=== PATIENT | female | born 1970 | race Caucasian/White ===

== ENCOUNTER 2023-05-26 16:48 | Inpatient (IN) | payer MEDICAID, SELFPAY ==
[2023-05-26] VITALS (36 sets, daily range): BP systolic 139–162; BP diastolic 91–115; PULSE 93–151; RESP 13–31; TEMP 36.8–37.1; O2SAT 88–100; BMI 18.3; BMI 17.8
--- NOTE | 2023-05-26 17:04 | ECG_ITS ---
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
--- NOTE | 2023-05-26 17:05 | ED_ITS ---
HPI - SOB/Dyspnea General Chief Complaint: Shortness of Breath/Dyspnea Stated Complaint: earache, sob Time Seen by Provider: 05/26/23 16:54 Source: patient Mode of arrival: walk-in Limitations: no limitations History of Present Illness HPI Narrative: 52-year-old female presents for shortness of breath and cough. She has been sick for at least the last week. She was at an urgent care center and they put her on some medicine including a steroid. Her left ear has been hurting and it still hurts. No drainage. She was noted to be tachycardic at triage but did not realize that her heart rate was so fast. She states she has never used inhalers at home. Symptoms are continuous. Related Data Home Medications Medication Instructions Recorded Confirmed prednisone 20 mg tablet 20 mg PO BID 05/26/23 05/26/23 pseudoephedrine 60 mg-DM 15 1 tab PO Q4H 05/26/23 05/26/23 mg-guaifenesin 400 mg tablet (Capmist DM) Allergies Allergy/AdvReac Type Severity Reaction Status Date / Time No Known Drug Allergies Allergy Verified 05/26/23 17:01 Review of Systems ROS Narrative A ten point review of systems is negative except as noted above. PFSH PFSH Social History Smoking status: Heavy tobacco smoker Exam Narrative Exam Narrative: Nurses note and vital signs reviewed and patient is not hypoxic. General: The patient appears dyspneic. Skin: Warm, dry, no pallor noted. There is no rash noted. Head: Normocephalic, atraumatic Eye: Normal conjunctiva, no drainage Ears, Nose, Mouth, and Throat: oral mucosa is moist. Nares patent. Cardiovascular: Regular Rate and Rhythm, tachycardic Respiratory: Bilateral rhonchi present, breath sounds are Back: non-tender GI: Soft and nontender Musculoskeletal: The patient has no evidence of calf tenderness, no pitting edema, symmetrical pulses noted bilaterally Neurological: A&O, normal speech Psychiatric: Cooperative Constitutional Vital Signs, click to edit/add: Last Vital Signs Temp 98.8 F 05/26/23 16:56 Pulse 109 H 05/26/23 17:50 Resp 24 05/26/23 17:50 BP 158/104 H 05/26/23 17:49 Pulse Ox 98 05/26/23 17:50 O2 Del Method Room Air 05/26/23 17:31 Course Vital Signs Vital signs: Vital Signs Temperature 98.8 F 05/26/23 16:56 Pulse Rate 130 H 05/26/23 16:56 Respiratory Rate 20 05/26/23 16:56 Blood Pressure 162/101 H 05/26/23 16:56 Pulse Oximetry 98 05/26/23 16:56 Temperature 98.8 F 05/26/23 16:56 Pulse Rate 109 H 05/26/23 17:50 Respiratory Rate 24 05/26/23 17:50 Blood Pressure 158/104 H 05/26/23 17:49 Pulse Oximetry 98 05/26/23 17:50 Oxygen Delivery Method Room Air 05/26/23 17:31 MDM - SOB/Dyspnea MDM Narrative Medical decision making narrative: LFTs are quite elevated. CT scan is ordered and pending and the patient is signed out to Dr. Vargas at change of shift. Chest x-ray shows no acute findings and COVID and influenza test are negative Differential Diagnosis Differential diagnosis: Likely acute exacerbation of chronic obstructive airways disease, congestive heart failure, community acquired pneumonia and other (Acute cholecystitis) Lab Data Attestation: I reviewed the patient's lab results. Labs: Lab Results 05/26/23 05/26/23 Range/Units 17:10 18:35 WBC 7.7 (4.0-11.0) 10^3/uL RBC 4.21 (4.20-5.40) 10^6/uL Hgb 14.4 (12.0-16.0) g/dL Hct 39.5 (36.0-48.0) % MCV 93.8 (81.0-99.0) fL MCH 34.2 H (26.7-34.0) pg MCHC 36.5 H (29.9-35.2) g/dL RDW 15.1 H (11.0-15.0) % Plt Count 133 L (150-450) 10^3/uL MPV 10.1 (9.5-13.5) fL Neut % (Auto) 91.9 H (43.0-75.0) % Lymph % (Auto) 3.5 L (20.5-60.0) % [place] % (Auto) 3.2 (1.7-12.0) % Eos % (Auto) 0.4 L (0.9-7.0) % Baso % (Auto) 0.5 (0.2-2.0) % Neut # (Auto) 7.1 H (1.4-6.5) 10^3/uL Lymph # (Auto) 0.3 L (1.2-3.8) 10^3/uL [place] # (Auto) 0.3 (0.3-0.8) 10^3/uL Eos # (Auto) 0.0 (0.0-0.7) 10^3/uL Baso # (Auto) 0.0 (0.0-0.1) 10^3/uL Abs Immat Gran (auto) 0.04 H (0.00-0.03) 10^3/uL Imm/Tot Granulo (auto) 0.5 (0.0-0.5) % Sodium 125 L (136-145) mmol/L Potassium 3.5 (3.5-5.1) mmol/L Chloride 89 L (98-107) mmol/L Carbon Dioxide 19.6 L (21.0-32.0) mmol/L Anion Gap 19.9 BUN 12.0 (7.0-18.0) mg/dL Creatinine 0.69 (0.55-1.02) mg/dL Est GFR ( Amer) >60 (>=60) Est GFR (Non-Af Amer) >60 (>=60) BUN/Creatinine Ratio 17.4 Glucose 117 H (74-106) mg/dL Lactate 2.8 H* (0.4-2.0) mmol/L Calcium 7.3 L (8.5-10.1) mg/dL Total Bilirubin 2.9 H (0.2-1.0) mg/dL AST 1120 H* (15-37) U/L ALT 553 H* (14-59) U/L Alkaline Phosphatase 337 H (46-116) U/L Total Protein 6.8 (6.4-8.2) g/dL Albumin 3.3 L (3.4-5.0) g/dL Globulin 3.5 g/dL Albumin/Globulin Ratio 0.9 Procalcitonin 0.70 H (0.00-0.50) ng/mL Urine Color Yellow (YELLOW) Urine Clarity Clear (CLEAR) Urine pH 6.5 (5.0-9.0) Ur Specific [place] 1.010 (1.005-1.025) Urine Protein Trace (NEG/TRACE) mg/dL Urine Glucose (UA) Negative (NEGATIVE) mg/dL Urine Ketones 15 A (NEGATIVE) mg/dL Urine Occult Blood Negative (NEGATIVE) Urine Nitrite Negative (NEGATIVE) Urine Bilirubin Small A (NEGATIVE) Urine Urobilinogen 2.0 A (0.2-1.0) EU/dL Ur Leukocyte Esterase Negative (NEGATIVE) Influenza Type A Ag Negative Influenza Type B Ag Negative SARS-CoV-2 Ag (CV2AG) Negative (NEGATIVE) Imaging Data Chest x-ray: Radiologist's impression: ITS Impressions Chest X-Ray 05/26/23 17:37 IMPRESSION: No acute cardiopulmonary abnormality. Electronically authenticated by: CHESTER SINGH Date: 05/26/2023 18:28 Discharge Plan Discharge Patient Disposition: Still a Patient
[2023-05-26] MEDS: METHYLPREDNISOLONE SOD SUCC PF 125 MG/2 ML VIAL IVP (17:19)
[2023-05-26 17:24] LABS: Basophils Percent Auto 0.5 % (0.2-2.0); Eosinophils Percent Auto 0.4 % (0.9-7.0); Hematocrit 39.5 % (36.0-48.0); Hemoglobin 14.4 g/dL (12.0-16.0); Immature Granulocytes Abs Auto 0.04 10^3/uL (0.00-0.03); Immature Granulocytes Pct Auto 0.5 % (0.0-0.5); Lymphocytes Absolute Auto 0.3 10^3/uL (1.2-3.8); Lymphocytes Percent Auto 3.5 % (20.5-60.0); Mean Corpuscular HGB Conc 36.5 g/dL (29.9-35.2); Mean Corpuscular Hemoglobin 34.2 pg (26.7-34.0); Mean Corpuscular Volume 93.8 fL (81.0-99.0); Mean Platelet Volume 10.1 fL (9.5-13.5); Monocytes Absolute Auto 0.3 10^3/uL (0.3-0.8); Monocytes Percent Auto 3.2 % (1.7-12.0); Neutrophils Absolute Auto 7.1 10^3/uL (1.4-6.5); Neutrophils Percent Auto 91.9 % (43.0-75.0); Platelet Count 133 10^3/uL (150-450); Red Blood Count 4.21 10^6/uL (4.20-5.40); Red Cell Distribution Width 15.1 % (11.0-15.0); White Blood Count 7.7 10^3/uL (4.0-11.0)
[2023-05-26] MEDS: ALBUTEROL SULFATE 2.5 MG/3 ML VIAL NEB IH (17:36)
--- NOTE | 2023-05-26 17:37 | XR_ITS ---
The [address] [address] Patient Name: ADRIAN ABEBE MRN: [id number] date: 1970 Sex: F Assigned Patient Location: ER Current Patient Location: ER Accession/Order Number: [id number] Exam Date: 05/26/2023 17:45 Report Date: 05/26/2023 18:28 At the request of: IMELDA CARDOZA Procedure: XR chest 1V EXAMINATION: XR chest 1V 05/26/2023 3:27 PM PST HISTORY: SOB TECHNIQUE: Single frontal view of the chest acquired. COMPARISONS: None. FINDINGS: Lines/tubes/other: None. Heart and mediastinum: The heart and the mediastinum are within normal limits for technique. Bones: No acute osseous abnormality. Healed left clavicle fracture and healed left-sided rib fractures. Lungs: The lungs are clear. There is no evidence of pneumonia or pulmonary edema. Pleura: There is no significant pleural effusion or pneumothorax. Other: None. XR/XR chest 1V IMPRESSION: No acute cardiopulmonary abnormality. Electronically authenticated by: CHESTER SINGH Date: 05/26/2023 18:28
[2023-05-26 17:39] LABS: Albumin Globulin Ratio 0.9; Albumin Level 3.3 g/dL (3.4-5.0); Alkaline Phosphatase 337 U/L (46-116); Anion Gap 19.9; BUN Creatinine Ratio 17.4; Bilirubin Total 2.9 mg/dL (0.2-1.0); Calcium 7.3 mg/dL (8.5-10.1); Carbon Dioxide 19.6 mmol/L (21.0-32.0); Chloride 89 mmol/L (98-107); Estimated GFR (African America >60 (>=60); Estimated GFR (Non-African Ame >60 (>=60); Globulin 3.5 g/dL; Glucose 117 mg/dL (74-106); Potassium 3.5 mmol/L (3.5-5.1); Sodium 125 mmol/L (136-145); Total Protein 6.8 g/dL (6.4-8.2)
[2023-05-26 17:55] LABS: Alanine Aminotransferase 553 U/L (14-59); Aspartate Amino Transferase 1120 U/L (15-37); Lactate/Lactic Acid 2.8 mmol/L (0.4-2.0)
[2023-05-26 17:56] LABS: Influenza Virus A Antigen Negative; Influenza Virus B Antigen Negative; Internal Control Within Normal Limits; SARS-CoV-2 Ag NEGATIVE (NEGATIVE)
--- NOTE | 2023-05-26 18:06 | CT_ITS ---
[address] [address] Patient Name: ADRIAN ABEBE MRN: [id number] date: 1970 Sex: F Assigned Patient Location: ER Current Patient Location: .MAIN Accession/Order Number: [id number] Exam Date: 05/26/2023 18:21 Report Date: 05/26/2023 19:00 At the request of: IMELDA CARDOZA Procedure: CT abdomen pelvis w con EXAM: CT abdomen pelvis w con; [id number] REASON FOR EXAM: Elevated LFTs TECHNIQUE: Helical CT images of the abdomen and pelvis were obtained after the administration of IV contrast. Multiplanar reformats were generated at the scanner. Dose reduction technique used: Automated exposure control and/or adjustment of the mA and/or kV according to patient size and/or use of iterative reconstruction technique. COMPARISON: None. FINDINGS: Visualized Chest: No pleural effusion or any significant pulmonary findings. Abdomen: Liver: Hepatic steatosis. Extension of the left lobe liver into the left upper quadrant. Gallbladder: No calcified gallstones. No acute inflammatory changes. Bile Ducts: No significant biliary ductal dilatation. Pancreas: No mass, ductal dilatation, or inflammatory changes. Spleen: No splenomegaly or focal lesion. Adrenals: Mild enlargement of the left adrenal gland which could be within normal limits versus mild adrenal hyperplasia. No discrete nodule demonstrated. Kidneys: -No stones or hydronephrosis. -No mass. Vascular: No aortic aneurysm. Lymph Nodes: No adenopathy. Abdominal Wall: No hernia or mass. Pelvis: No mass or adenopathy. Bowel/Peritoneal Cavity/Mesentery: -Mild colonic wall thickening and trace pericolonic fat stranding surrounding the ascending colon. -No bowel obstruction or significant ileus. -No acute inflammatory changes. -No free air or free fluid. Musculoskeletal: No acute fracture or suspicious osseous lesion. CT/CT abdomen pelvis w con IMPRESSION: 1. Findings suspect for mild colitis of the ascending colon. Alternatively, the sequela of chronic inflammation could have a similar appearance. 2. Hepatic steatosis with mild hepatomegaly. These findings in combination could be seen in the setting of steatohepatitis. Electronically authenticated by: CHESTER SINGH Date: 05/26/2023 19:00
[2023-05-26 18:46] LABS: Bilirubin Urine SMALL (NEGATIVE); Blood Urine NEGATIVE (NEGATIVE); Clarity Urine CLEAR (CLEAR); Color Urine YELLOW (YELLOW); Glucose Urine UA NEGATIVE (NEGATIVE); Ketones Urine 15 mg/dL (NEGATIVE); Leukocyte Esterase Urine NEGATIVE (NEGATIVE); Nitrite Urine NEGATIVE (NEGATIVE); Protein Urine TRACE mg/dL (NEG/TRACE); pH Urine 6.5 (5.0-9.0)
[2023-05-26 18:48] LABS: Urine Microscopic Indicated NO
[2023-05-26 20:29] LABS: Amphetamine Screen Urine NEGATIVE (NEGATIVE); Barbiturates Screen Urine NEGATIVE (NEGATIVE); Benzodiazepines Screen Urine NEGATIVE (NEGATIVE); Buprenorphine Screen Urine NEGATIVE (NEGATIVE); Cannabinoid Screen Urine NEGATIVE (NEGATIVE); Cocaine Screen Urine NEGATIVE (NEGATIVE); Methadone Screen Urine NEGATIVE (NEGATIVE); Methamphetamines Screen Urine NEGATIVE (NEGATIVE); Opiate Screen Urine NEGATIVE (NEGATIVE); Oxycodone Screen Urine NEGATIVE (NEGATIVE); Phencyclidine Screen Urine NEGATIVE (NEGATIVE); Tricyclic Antidepressant Urine NEGATIVE (NEGATIVE)
[2023-05-26 20:35] LABS: Ethanol 12 mg/dL
[2023-05-26 21:05] LABS: Amylase 44 U/L (25-115)
[2023-05-26 21:33] LABS: Lactate/Lactic Acid 1.4 mmol/L (0.4-2.0)
--- NOTE | 2023-05-26 22:13 | PC.NURSE ---
Patient refusing SCD's and BENJI's
[2023-05-26] MEDS: 0.9 % SODIUM CHLORIDE 1,000 ML 125 ML IV (22:17)
[2023-05-27 00:38] VITALS: BP 149/90; PULSE 92; RESP 20; TEMP 36.8; O2SAT 96
[2023-05-27] MEDS: LORAZEPAM 1 MG TABLET PO ×5 (01:23→21:14)
[2023-05-27 05:24] LABS: Hematocrit 33.9 % (36.0-48.0); Mean Corpuscular HGB Conc 35.4 g/dL (29.9-35.2); Mean Corpuscular Hemoglobin 33.6 pg (26.7-34.0); Mean Platelet Volume 11.4 fL (9.5-13.5); Platelet Count 83 10^3/uL (150-450); Red Blood Count 3.57 10^6/uL (4.20-5.40); Red Cell Distribution Width 15.2 % (11.0-15.0)
[2023-05-27 05:30] LABS: INR 1.38; Prothrombin Time 14.4 sec (9.0-11.6)
[2023-05-27 05:47] LABS: Alanine Aminotransferase 455 U/L (14-59); Albumin Globulin Ratio 0.8; Albumin Level 2.4 g/dL (3.4-5.0); Alkaline Phosphatase 282 U/L (46-116); Anion Gap 15.9; BUN Creatinine Ratio 18.3; Bilirubin Total 3.8 mg/dL (0.2-1.0); Calcium 6.7 mg/dL (8.5-10.1); Carbon Dioxide 22.9 mmol/L (21.0-32.0); Chloride 97 mmol/L (98-107); Chol HDL Ratio 5.9; Cholesterol 136 mg/dL (<=200); Estimated GFR (African America >60 (>=60); Estimated GFR (Non-African Ame >60 (>=60); Globulin 3.1 g/dL; Glucose 148 mg/dL (74-106); HDL Cholesterol 23 mg/dL (40-60); Potassium 3.8 mmol/L (3.5-5.1); Sodium 132 mmol/L (136-145); Total Protein 5.5 g/dL (6.4-8.2); Triglycerides 203 mg/dL (<=150); VLDL CHOLESTEROL 40.6 mg/dL
[2023-05-27 05:49] VITALS: BP 158/83; PULSE 79; RESP 16; TEMP 36.6; O2SAT 96
[2023-05-27] MEDS: 0.9 % SODIUM CHLORIDE 1,000 ML 125 ML IV ×3 (05:51→21:09)
[2023-05-27 05:53] LABS: Band Neutrophils Absolute 0.1 10^3/uL (0.0-0.3); Lymphocytes Absolute Manual 0.03 10^3/uL (1.20-3.80); Monocytes Absolute Manual 0.18 10^3/uL (0.30-0.80)
[2023-05-27 06:15] LABS: Aspartate Amino Transferase 1046 U/L (15-37)
--- NOTE | 2023-05-27 07:00 | US_ITS ---
The [address] [address] Patient Name: ADRIAN ABEBE MRN: [id number] date: 1970 Sex: F Assigned Patient Location: Current Patient Location: Accession/Order Number: [id number] Exam Date: 05/27/2023 08:45 Report Date: 05/27/2023 10:37 At the request of: MARGO TOSCANO Procedure: US right upper quadrant PROCEDURE: US right upper quadrant, 05/27/2023 8:45 AM EST CLINICAL INDICATIONS: Right upper quadrant abdominal pain for one week, elevated liver function test. COMPARISON: CT abdomen and pelvis 05/26/2023 TECHNIQUE: Right upper quadrant abdominal sonogram FINDINGS: Common bile duct 0.2 cm. The gallbladder is normal in size. Gallbladder calculus, wall thickening, or pain in the region is not elicited. Visualized pancreas is unremarkable. No ductal dilatation is seen. Portions of head and tail segments obscured. Coarsened hepatic echotexture increased echogenicity, decreased acoustic penetration noted. Increased echogenicity seen. Right lobe enlarged 17 cm craniocaudally. Visualized portal vein patent, antegrade flow. Normal velocity 41 cm/s. Visualized hepatic veins are patent with antegrade flow. Focal abnormality is not seen. Right kidney is normal in morphology. It measures 9.6 x 4.8 x 4.1 cm. No hydronephrosis or shadowing calculus is identified. Focal renal abnormality is not demonstrated. No ascites. US/US right upper quadrant IMPRESSION: 1. Hepatomegaly, moderate hepatic steatosis. 2. No additional right upper quadrant abdominal pathology. Electronically authenticated by: SHANTE BURGOS Date: 05/27/2023 10:37
[2023-05-27] MEDS: METHYLPREDNISOLONE SOD SUCC PF 40 MG/ML VIAL IVP (08:30)
[2023-05-27] MEDS: NICOTINE 21 MG PATCH.TD24 TD (08:30)
--- NOTE | 2023-05-27 10:01 | CM.NOTE ---
Rounds made with Dr. Luu. No plan for discharge today. Would like to continue with current treatment plan.
--- NOTE | 2023-05-27 10:51 | SWNOTE1 ---
PATRICK met with pt to discuss dc needs and her alcohol intake. Pt lives at home with her boyfriend. She is currently trying to cut back on her alcohol intake. She does not have insurance and can't afford to pay to go to any alcohol rehab. At this time she does not want to go to alcohol rehab. She voiced her boyfriend and mother are a good support. They are both recovering alcoholics as well. She does not feel she can quit cold turkey, as she is concerned about withdrawal and detoxing. She stated she is working on getting a PCP so she can have someone monitor. PATRICK offered a medicaid application and PCP list. Pt would like both. At this time pt denies any other needs. SW gave her medicaid scot and PCP list. SW offered to send in medicaid scot once completed.
--- NOTE | 2023-05-27 12:17 | P.HP_ITS ---
<Statement entered by Lionel Luu MD - 05/27/23 20:26> This documentation has been reviewed and approved. Agree with input pt seen and examined this am Follow up on coagulopathy due to alcoholic liver disease Treat Hyperammonemia H&P: HPI History of Present Illness Chief complaint: earache, sob, Generalized Weakness Narrative: 05/27/23 0945 This is a 52-year-old female patient with a past medical history as outlined below including long-term tobacco and alcohol dependence; who presented to the ED last night with multiple complaints including fatigue, shortness of breath, earache, and stomach pain. The patient reports onset of her symptoms on (5 days ago) which was mainly significant for fatigue and malaise. Later that same day she developed colicky stomach pain and diarrhea. She reports episodes of diarrhea 2-3 times a day. Yesterday morning she was short of breath on awakening and eventually presented to the ED for further evaluation. In the interim she was seen by her PCP who examined her ears and throat and told her she had no acute infection but did give her some oral steroids. Workup in the ED revealed mild tachycardia (109), and tachypnea (31). Significant LFT elevation was also noted on labs (bili 2.9, AST 1120, ALT 553, alk phos 337), and a procalcitonin was elevated as well (0.70). A CT of the abdomen and pelvis was obtained which revealed mild colitis of the ascending colon and hepatic steatosis and mild hepatomegaly. She was admitted to observation last night to the hospitalist service for further hepatic workup. On exam today the patient is resting comfortably in bed. A right upper quadrant ultrasound has already been obtained, with results still pending, for further evaluation of possible biliary obstruction as etiology of her transaminitis. Her abdomen is diffusely tender but greatest at the left lower quadrant. She Admits to a significant EtOH abuse history, but reports reduced drinking pattern of 3 to 4 cans of beer a day with occasional fireball shots once or twice a week since November. She is also a daily smoker. She notes strong family pattern of alcohol abuse including her father and many other relatives. Her significant other who lives with her also abuses alcohol on a daily basis. She was strongly advised to pursue complete alcohol cessation as it is likely that her transaminitis reflects alcoholic hepatitis. She verbalizes understanding. She was also advised to stop smoking. She is beginning to show mild symptoms of alcohol withdrawal with significant hand tremors. As she intends to stop drinking completely we will keep her in the hospital for another 24-48 hours to ensure she is safely withdrawn from alcohol. Will also initiate treatment with Cipro and Flagyl for acute colitis. Due to her shortness of breath there is some concern of mild COPD exacerbation and we will also treat this accordingly. Review of Systems ROS Status of ROS 10 or more systems reviewed and unremark able except as noted in history and below [facility] Medical History (Updated 05/27/23 @ 13:39 by Sofie Marquis NP) Alcohol abuse ?F10.10 - Alcohol abuse, uncomplicated (ICD-10) Tobacco dependence ?F17.200 - Nicotine dependence, unspecified, uncomplicated (ICD-10) Surgical History (Updated 05/26/23 @ 21:59 by Elizabeth Feliciano) History of partial hysterectomy ?Z90.711 - Acquired absence of uterus with remaining cervical stump (ICD-10) Family History (Updated 05/26/23 @ 21:55 by Elizabeth Feliciano) Mother Family history of COPD (chronic obstructive pulmonary disease) Family history of hypertension Grandmother Family history of COPD (chronic obstructive pulmonary disease) Family history of cancer Grandfather Family history of cancer Father Brain aneurysm Social History (Updated 05/26/23 @ 22:00 by Elizabeth Feliciano) Within the past year, how often did you have a drink containing alcohol: 4 or more times a week Within the past year, how many standard drinks containing alcohol did you have on a typical day: 3 or 4 Within the past year, how often did you have six or more drinks on one occasion: never Total score: 2 Score interpretation: A score of 3 or more indicates drinking is likely to affect patient's safety. Smoking status: Current every day smoker Nicotine containing products detail: smokes pack daily Non-prescribed substance use: cannabis (any form) Non-prescribed substance use details: smokes -last time was 05/25/23 and has gummies that she used last week Highest level of school completed/degree received: 11th grade Gender Identity: female Meds Home Medications and Allergies Home Medications Medication Instructions Recorded Confirmed Type prednisone 20 mg tablet 20 mg PO BID 05/26/23 05/26/23 History pseudoephedrine 60 mg-DM 15 1 tab PO Q4H 05/26/23 05/26/23 History mg-guaifenesin 400 mg tablet (Capmist DM) Allergies Allergy/AdvReac Type Severity Reaction Status Date / Time No Known Drug Allergies Allergy Verified 05/26/23 17:01 Exam Constitutional Vital Signs, click to edit/add: Last Vital Signs Temp 97.8 F 05/27/23 05:49 Pulse 79 05/27/23 05:49 Resp 16 05/27/23 05:49 BP 158/83 H 05/27/23 05:49 Pulse Ox 96 05/27/23 05:49 O2 Del Method Room Air 05/27/23 05:49 Common normals: no apparent distress, oriented x3, alert and well nourished General appearance: cooperative Orientation/consciousness: Yes awake HENMT Common normals: normocephalic, head/scalp atraumatic, hearing grossly normal bilaterally, external nose normal and moist oral mucous membranes Eye Common normals: PERRL, EOMs intact bilaterally, conjunctivae normal and no scleral icterus Alignment: alignment normal Eyelid: eyelids normal Neck & C-Spine Common normals: full ROM, supple and no JVD Chest Common normals: inspection of chest normal Chest: symmetrical chest wall rise Respiratory Common normals: normal respiratory effort, no retractions, no use of accessory muscles and clear to auscultation bilaterally Effort & inspection: able to speak in complete sentences Auscultation: diminished lung sounds bilateral in the lower lung david Cardio Common normals: no JVD, regular rate, regular rhythm, S1 normal heart sound, S2 normal heart sound, no gallops, no clicks, no murmurs, no rub and peripheral pulses 2+ throughout GI Common normals: Normal to inspection, nondistended, normoactive bowel sounds present, soft to palpation, no hepatosplenomegaly, no masses and no bruits Palpation: tender (Diffuse, greatest at LLQ); no guarding, not rigid and no rebound tenderness present Bladder/kidney exam: bladder normal to palpation Back & Pelvis Common normals: thoracic and lumbar spine normal to inspection Extremity Common normals: normal capillary refill and no pedal edema General: normal exam except as noted; no clubbing and no cyanosis Neuro Norman Coma Scale: GCS not evaluated Common normals: CN's II-XII intact bilaterally, moves all extremities, no focal motor deficits and no sensory deficits noted Speech: speech normal Motor exam: strength 5/5 throughout Psych Common normals: mental status grossly normal, thought process normal, affect normal and activity/motor behavior normal Results Labs Labs: Short CBC 05/26/23 05/27/23 Range/Units 17:10 04:39 WBC 7.7 3.0 L (4.0-11.0) 10^3/uL Hgb 14.4 12.0 (12.0-16.0) g/dL Hct 39.5 33.9 L (36.0-48.0) % Plt Count 133 L 83 L (150-450) 10^3/uL BMP 05/26/23 05/27/23 17:10 04:39 Sodium 125 L 132 L Potassium 3.5 3.8 Chloride 89 L 97 L Carbon Dioxide 19.6 L 22.9 BUN 12.0 11.0 Creatinine 0.69 0.60 Glucose 117 H 148 H Calcium 7.3 L 6.7 L Liver Function 05/26/23 05/27/23 Range/Units 17:10 04:39 Total Bilirubin 2.9 H 3.8 H (0.2-1.0) mg/dL AST 1120 H* 1046 H* (15-37) U/L ALT 553 H* 455 H (14-59) U/L Alkaline Phosphatase 337 H 282 H (46-116) U/L Albumin 3.3 L 2.4 L (3.4-5.0) g/dL Urine 05/26/23 Range/Units 18:35 Urine Color Yellow (YELLOW) Urine Clarity Clear (CLEAR) Urine pH 6.5 (5.0-9.0) Ur Specific [place] 1.010 (1.005-1.025) Urine Protein Trace (NEG/TRACE) mg/dL Urine Glucose (UA) Negative (NEGATIVE) mg/dL Pulse Oximetry Attestation: I have reviewed the pertinent pulse oximetry results. Imaging Chest x-ray: Radiologist's impression: IMPRESSION: No acute cardiopulmonary abnormality. CT scan - abdomen: Attestation: I have reviewed the pertinent imaging results. Additional Findings Additional findings: IMPRESSION: 1. Findings suspect for mild colitis of the ascending colon. Alternatively, the sequela of chronic inflammation could have a similar appearance. 2. Hepatic steatosis with mild hepatomegaly. These findings in combination could be seen in the setting of steatohepatitis. Assessment and Plan Assessment and Plan (1) Acute colitis: Assessment and Plan: ACUTE * Adm obs * CT abd/pelvis imaging consistent w/ mild ascending colitis * Pt is afebrile, without leukocytosis * Start IVPB Cipro and Flagyl - plan to dc on PO versions * CBC, CMP in AM (2) Elevated LFTs: Assessment and Plan: ACUTE * Unclear etiology but strongly suspect alcoholic hepatitis * Hepatitis panel ordered - send out, result pending * No evidence of obstruction on CT imaging * US RUQ today for definitive assessment for obstruction vs other - result pending * Obtain direct bili * CMP in AM (3) Hyponatremia: Assessment and Plan: ACUTE * Suspect d/t dehydration in setting of chronic EtOH abuse * Improved overnight with IVF administration (132 now, 125 in ED) * Resolving * CMP in AM (4) COPD exacerbation: Assessment and Plan: ACUTE * Suspected - mild * No hypoxia, but tachypnea and reported SOB * Solumedrol 125 mg x 1 given in ED * Continue Prednisone 40 mg daily burst x 3 days * PRN Duonebs (5) Generalized weakness: Assessment and Plan: ACUTE * Likely multifactorial 2/2 dehydration, hyponatremia, acute colitis infection * K+ WNL * Add a mag level on to AM labs an replete if indicated * PT consult (6) Alcohol abuse: Assessment and Plan: CHRONIC * Complete EtOH cessation advised * CIWA protocol w/ PRN ativan * Seizure precautions (7) Tobacco dependence: Assessment and Plan: CHRONIC * Nicoderm patch * Complete cessation advised
[2023-05-27 13:05] LABS: Magnesium 1.1 mg/dL (1.8-2.4)
[2023-05-27 13:08] VITALS: BP 137/85; PULSE 103; RESP 18; TEMP 36.6; O2SAT 97
[2023-05-27] MEDS: CIPROFLOXACIN IN 5 % DEXTROSE 400 MG/200 ML PIGGYBACK 200 MG IV (14:36)
[2023-05-27] MEDS: PREDNISONE 20 MG TABLET 40 MG PO (14:36)
[2023-05-27] MEDS: METRONIDAZOLE/SODIUM CHLORIDE 500 MG/100 ML PREMIX 100 MG IV ×2 (15:59→22:06)
[2023-05-27 17:03] LABS: Ammonia 65 umol/L (11-32)
[2023-05-27 17:09] LABS: Partial Thromboplastin Time 22.5 sec (22.3-36.2)
[2023-05-27] MEDS: MAGNESIUM SULFATE IN WATER 4 GM/100 ML PIGGYBACK IV (17:27)
[2023-05-27] MEDS: PANTOPRAZOLE SODIUM 40 MG VIAL IV (17:27)
[2023-05-27 19:34] VITALS: BP 118/78; PULSE 73; RESP 18; TEMP 37; O2SAT 93
[2023-05-27 19:53] VITALS: PULSE 96; RESP 16
[2023-05-27] MEDS: LACTULOSE 10 GM/15 ML UD CUP 20 GM PO (21:09)
[2023-05-28] VITALS (12 sets, daily range): BP systolic 124–156; BP diastolic 74–92; PULSE 62–87; RESP 16–20; TEMP 36.8–37.2; O2SAT 62–97
[2023-05-28] MEDS: CIPROFLOXACIN IN 5 % DEXTROSE 400 MG/200 ML PIGGYBACK 200 MG IV ×2 (00:53→12:52)
[2023-05-28] MEDS: LORAZEPAM 1 MG TABLET PO ×4 (02:47→20:18)
[2023-05-28 05:36] LABS: Hematocrit 31.2 % (36.0-48.0); Hemoglobin 10.8 g/dL (12.0-16.0); Immature Granulocytes Abs Auto 0.05 10^3/uL (0.00-0.03); Immature Granulocytes Pct Auto 0.7 % (0.0-0.5); Lymphocytes Absolute Auto 0.2 10^3/uL (1.2-3.8); Lymphocytes Percent Auto 2.2 % (20.5-60.0); Mean Corpuscular HGB Conc 34.6 g/dL (29.9-35.2); Mean Corpuscular Hemoglobin 33.5 pg (26.7-34.0); Mean Corpuscular Volume 96.9 fL (81.0-99.0); Monocytes Absolute Auto 0.3 10^3/uL (0.3-0.8); Monocytes Percent Auto 4.2 % (1.7-12.0); Neutrophils Percent Auto 92.9 % (43.0-75.0); Platelet Count 77 10^3/uL (150-450); Red Blood Count 3.22 10^6/uL (4.20-5.40); Red Cell Distribution Width 15.9 % (11.0-15.0); White Blood Count 7.6 10^3/uL (4.0-11.0)
[2023-05-28 06:19] LABS: Alanine Aminotransferase 317 U/L (14-59); Albumin Globulin Ratio 0.9; Albumin Level 2.3 g/dL (3.4-5.0); Alkaline Phosphatase 288 U/L (46-116); Aspartate Amino Transferase 355 U/L (15-37); BUN Creatinine Ratio 15.9; Bilirubin Total 1.9 mg/dL (0.2-1.0); Calcium 6.7 mg/dL (8.5-10.1); Carbon Dioxide 23.8 mmol/L (21.0-32.0); Chloride 102 mmol/L (98-107); Estimated GFR (African America >60 (>=60); Estimated GFR (Non-African Ame >60 (>=60); Globulin 2.7 g/dL; Glucose 128 mg/dL (74-106); Magnesium 2.2 mg/dL (1.8-2.4); Phosphorus 1.8 mg/dL (2.6-4.7); Sodium 136 mmol/L (136-145)
[2023-05-28 06:33] LABS: Potassium 2.8 mmol/L (3.5-5.1)
[2023-05-28] MEDS: 0.9 % SODIUM CHLORIDE 1,000 ML 125 ML IV ×2 (07:45→21:07)
[2023-05-28] MEDS: METRONIDAZOLE/SODIUM CHLORIDE 500 MG/100 ML PREMIX 100 MG IV ×3 (07:49→22:08)
[2023-05-28 08:55] LABS: Ammonia 53 umol/L (11-32)
[2023-05-28] MEDS: POTASSIUM CHLORIDE 10 MEQ ER TABLET 40 MEQ PO ×2 (09:00→15:26)
[2023-05-28] MEDS: PREDNISONE 20 MG TABLET 40 MG PO (09:02)
[2023-05-28] MEDS: LACTULOSE 10 GM/15 ML UD CUP 20 GM PO ×2 (09:03→20:18)
[2023-05-28] MEDS: NICOTINE 21 MG PATCH.TD24 TD (09:05)
--- NOTE | 2023-05-28 10:21 | CM.NOTE ---
Rounds made with Dr. Luu. Still with cough-productive at time. Dr. Luu explains would like staff to obtain a sputum culture and the process. Ms. Faulkner verbalizes understanding.
[2023-05-28 10:49] LABS: Reticulocyte Pct Auto 1.15 % (0.60-3.10)
[2023-05-28] MEDS: MULTIVITAMIN TABLET 1 TAB PO (10:50)
[2023-05-28 11:19] LABS: Percent Iron Saturation 105.6 %
--- NOTE | 2023-05-28 12:54 | P.PN_ITS ---
<Statement entered by Lionel Luu MD - 05/28/23 19:57> This documentation has been reviewed and approved. Patient was seen and examined this morning. Patient states her cough is now becoming more productive. Will try to obtain sputum sample. Generalized weakness is persisting. Thrombocytopenia somewhat deteriorated. Hemoglobin is down somewhat today to 3.6 g from admission. Dilution possible check occult blood Progress Note: Subjective Subjective Interval history: 05/28/23 1122 The pt is resting quietly in bed. She reports feeling more fatigued and weak today. Discussed electrolyte disturbances and possible SE of weakness and fatigue. Loose stools and abd pain are improving. Pt is aware of elevated ammonia level and need for lactulose dosing. Complete EtOH cessation again discussed. Exam Constitutional Vital Signs, click to edit/add: Last Vital Signs Temp 98.2 F 05/28/23 05:46 Pulse 62 05/28/23 08:00 Resp 16 05/28/23 08:00 BP 124/76 05/28/23 11:45 Pulse Ox 95 05/28/23 05:46 O2 Del Method Room Air 05/28/23 05:46 Common normals: no apparent distress, oriented x3 and alert General appearance: cooperative Orientation/consciousness: Yes awake HENMT Common normals: normocephalic, head/scalp atraumatic and hearing grossly normal bilaterally Eye Common normals: PERRL, EOMs intact bilaterally, conjunctivae normal and no scleral icterus General eye: normal appearance of both eyes Chest Common normals: inspection of chest normal Chest: symmetrical chest wall rise Respiratory Common normals: normal respiratory effort and no use of accessory muscles Effort & inspection: able to speak in complete sentences Auscultation: wheezes (Faint, LLL) Cardio Common normals: regular rate, regular rhythm, S1 normal heart sound, S2 normal heart sound, no murmurs and peripheral pulses 2+ throughout GI Common normals: Normal to inspection, nondistended, normoactive bowel sounds present, soft to palpation and no hepatosplenomegaly Palpation: tender (Diffuse, greatest at LUQ today); no guarding and no rebound tenderness present Bladder/kidney exam: bladder normal to palpation Extremity Common normals: normal to inspection and no calf tenderness General: no clubbing, no cyanosis and no edema Neuro Common normals: CN's II-XII intact bilaterally, moves all extremities, no focal motor deficits and no sensory deficits noted Psych Common normals: mental status grossly normal Progress Note: Objective Labs Labs: Short CBC 05/28/23 Range/Units 04:43 WBC 7.6 (4.0-11.0) 10^3/uL Hgb 10.8 L (12.0-16.0) g/dL Hct 31.2 L (36.0-48.0) % Plt Count 77 L (150-450) 10^3/uL BMP 05/28/23 04:43 Sodium 136 Potassium 2.8 L* Chloride 102 Carbon Dioxide 23.8 BUN 11.0 Creatinine 0.69 Glucose 128 H Calcium 6.7 L Liver Function 05/27/23 05/28/23 Range/Units 04:39 04:43 Total Bilirubin 1.9 H (0.2-1.0) mg/dL Direct Bilirubin 1.0 H* (0.0-0.2) mg/dL AST 355 H (15-37) U/L ALT 317 H (14-59) U/L Alkaline Phosphatase 288 H (46-116) U/L Albumin 2.3 L (3.4-5.0) g/dL Progress Note: A&P Assessment and Plan (1) Acute colitis: Assessment and Plan: ACUTE * Improving * Diarrhea resolved * Abdominal pain improving * CT abd/pelvis imaging consistent w/ mild ascending colitis - 05/26/23 * Pt remains afebrile, without leukocytosis * Continue IVPB Cipro and Flagyl - plan to dc on PO versions * CBC, CMP in AM (2) Elevated LFTs: Assessment and Plan: ACUTE Laboratory Tests 05/26/23 05/26/23 05/26/23 17:10 17:10 17:10 Total Bilirubin 2.9 H AST 1120 H* ALT 553 H* Alkaline Phosphatase 337 H 05/27/23 05/27/23 05/27/23 04:39 04:39 04:39 Total Bilirubin 3.8 H AST 1046 H* ALT Alkaline Phosphatase 282 H 05/27/23 05/28/23 05/28/23 04:39 04:43 04:43 Total Bilirubin 1.9 H AST 355 H ALT 455 H Alkaline Phosphatase 288 H 05/28/23 04:43 Total Bilirubin AST ALT 317 H Alkaline Phosphatase * Improving * Alcoholic hepatitis likely etiology * Hepatitis panel ordered - send out, result still pending * No evidence of obstruction on CT imaging, 05/26/23 * US RUQ yesterday - Hepatomegaly, moderate hepatic steatosis. No biliary obstruction. No ascites. * Direct bili elevated at 1.0 on 05/27/23 * Complete EtOH cessation strongly advised * CMP daily (3) Hyponatremia: Assessment and Plan: ACUTE * Resolved * CMP daily (4) Hyperammonemia: Assessment and Plan: ACUTE Laboratory Tests 05/27/23 05/28/23 16:41 08:39 Ammonia 65 H* 53 H* * No previous hyperammonemia hx is known, but likely d/t chronic alcoholic hepatitis * No evidence of hepatic encephalopathy to date * Lactulose 20 gm BID initiated yesterday afternoon - continue * Likely continue at discharge * Repeat ammonia level in AM (5) Hypomagnesemia: Assessment and Plan: ACUTE * Mg 1.1 on add on labs yesterday * Repleted w/ Mag sulf 4gm IVPB * Repeat mag today 2.2 * 2/2 chronic EtOH abuse * Monitor w/ mag level daily (6) Hypokalemia: Assessment and Plan: ACUTE * K+ 2.8 today * 2/2 chronic EtOH abuse * Replete w/ 40 meq PO q6h x 2 doses * Additional 44 meq given in IV K-Phos (see below) * Tele monitoring for cardiac arrhythmia * Repeat mag lvl in AM (7) Hypophosphatemia: Assessment and Plan: ACUTE * Phos 1.8 today * 2/2 chronic EtOH abuse * Replete w/ 30 mmol K-phos IVPB today * Repeat phos level in AM (8) Anemia: Assessment and Plan: ACUTE Laboratory Tests 05/26/23 05/28/23 17:10 04:43 Hgb 14.4 10.8 L * No evidence of active bleeding to date * In presence of thrombocytopenia (2/2 liver disease), obtain guaiac stool to r/o occult bleeding * Iron studies added on to AM labs * Add iron supplementation if indicated * Likely d/t IVF hydration/hemodilution in setting of chronic iron deficiency * CBC daily (9) Thrombocytopenia: Assessment and Plan: ACUTE Laboratory Tests 05/26/23 05/27/23 05/28/23 17:10 04:39 04:43 Plt Count 133 L 83 L 77 L * Likely multifactorial including hemodilution/IV hydration in setting of chronic liver disease (reduced thrombopoiesis) * No evidence of splenomegaly on CT abdomen imaging * No active bleeding - monitor * CBC daily (10) COPD exacerbation: Assessment and Plan: ACUTE * Suspected - mild * No hypoxia, but tachypnea and reported SOB * Solumedrol 125 mg x 1 given in ED * Continue Prednisone 40 mg daily burst x 3 days * PRN Duonebs (11) Generalized weakness: Assessment and Plan: ACUTE * Likely multifactorial 2/2 dehydration, hyponatremia, acute colitis infection, electrolyte disturbances * see above * PT consult (12) Alcohol abuse: Assessment and Plan: CHRONIC * Complete EtOH cessation advised * CIWA protocol w/ PRN ativan * Seizure precautions (13) Tobacco dependence: Assessment and Plan: CHRONIC * Nicoderm patch * Complete cessation advised
--- NOTE | 2023-05-28 12:54 | PM.PN ---
Progress Note: Subjective Subjective Interval history: 05/28/23 1122 The pt is resting quietly in bed. She reports feeling more fatigued and weak today. Discussed electrolyte disturbances and possible SE of weakness and fatigue. Loose stools and abd pain are improving. Pt is aware of elevated ammonia level and need for lactulose dosing. Complete EtOH cessation again discussed. Exam Constitutional Vital Signs, click to edit/add: Last Vital Signs Temp 98.2 F 05/28/23 05:46 Pulse 62 05/28/23 08:00 Resp 16 05/28/23 08:00 BP 124/76 05/28/23 11:45 Pulse Ox 95 05/28/23 05:46 O2 Del Method Room Air 05/28/23 05:46 Common normals: no apparent distress, oriented x3 and alert General appearance: cooperative Orientation/consciousness: Yes awake HENMT Common normals: normocephalic, head/scalp atraumatic and hearing grossly normal bilaterally Eye Common normals: PERRL, EOMs intact bilaterally, conjunctivae normal and no scleral icterus General eye: normal appearance of both eyes Chest Common normals: inspection of chest normal Chest: symmetrical chest wall rise Respiratory Common normals: normal respiratory effort and no use of accessory muscles Effort & inspection: able to speak in complete sentences Auscultation: wheezes (Faint, LLL) Cardio Common normals: regular rate, regular rhythm, S1 normal heart sound, S2 normal heart sound, no murmurs and peripheral pulses 2+ throughout GI Common normals: Normal to inspection, nondistended, normoactive bowel sounds present, soft to palpation and no hepatosplenomegaly Palpation: tender (Diffuse, greatest at LUQ today); no guarding and no rebound tenderness present Bladder/kidney exam: bladder normal to palpation Extremity Common normals: normal to inspection and no calf tenderness General: no clubbing, no cyanosis and no edema Neuro Common normals: CN's II-XII intact bilaterally, moves all extremities, no focal motor deficits and no sensory deficits noted Psych Common normals: mental status grossly normal Progress Note: Objective Labs Labs: Short CBC 05/28/23 Range/Units 04:43 WBC 7.6 (4.0-11.0) 10^3/uL Hgb 10.8 L (12.0-16.0) g/dL Hct 31.2 L (36.0-48.0) % Plt Count 77 L (150-450) 10^3/uL BMP 05/28/23 04:43 Sodium 136 Potassium 2.8 L* Chloride 102 Carbon Dioxide 23.8 BUN 11.0 Creatinine 0.69 Glucose 128 H Calcium 6.7 L Liver Function 05/27/23 05/28/23 Range/Units 04:39 04:43 Total Bilirubin 1.9 H (0.2-1.0) mg/dL Direct Bilirubin 1.0 H* (0.0-0.2) mg/dL AST 355 H (15-37) U/L ALT 317 H (14-59) U/L Alkaline Phosphatase 288 H (46-116) U/L Albumin 2.3 L (3.4-5.0) g/dL Progress Note: A&P Assessment and Plan (1) Acute colitis: Assessment and Plan: ACUTE Improving Diarrhea resolved Abdominal pain improving CT abd/pelvis imaging consistent w/ mild ascending colitis - 05/26/23 Pt remains afebrile, without leukocytosis Continue IVPB Cipro and Flagyl - plan to dc on PO versions CBC, CMP in AM (2) Elevated LFTs: Assessment and Plan: ACUTE Laboratory Tests 05/26/23 05/26/23 05/26/23 17:10 17:10 17:10 Total Bilirubin 2.9 H AST 1120 H* ALT 553 H* Alkaline Phosphatase 337 H 05/27/23 05/27/23 05/27/23 04:39 04:39 04:39 Total Bilirubin 3.8 H AST 1046 H* ALT Alkaline Phosphatase 282 H 05/27/23 05/28/23 05/28/23 04:39 04:43 04:43 Total Bilirubin 1.9 H AST 355 H ALT 455 H Alkaline Phosphatase 288 H 05/28/23 04:43 Total Bilirubin AST ALT 317 H Alkaline Phosphatase Improving Alcoholic hepatitis likely etiology Hepatitis panel ordered - send out, result still pending No evidence of obstruction on CT imaging, 05/26/23 US RUQ yesterday - Hepatomegaly, moderate hepatic steatosis. No biliary obstruction. No ascites. Direct bili elevated at 1.0 on 05/27/23 Complete EtOH cessation strongly advised CMP daily (3) Hyponatremia: Assessment and Plan: ACUTE Resolved CMP daily (4) Hyperammonemia: Assessment and Plan: ACUTE Laboratory Tests 05/27/23 05/28/23 16:41 08:39 Ammonia 65 H* 53 H* No previous hyperammonemia hx is known, but likely d/t chronic alcoholic hepatitis No evidence of hepatic encephalopathy to date Lactulose 20 gm BID initiated yesterday afternoon - continue Likely continue at discharge Repeat ammonia level in AM (5) Hypomagnesemia: Assessment and Plan: ACUTE Mg 1.1 on add on labs yesterday Repleted w/ Mag sulf 4gm IVPB Repeat mag today 2.2 2/2 chronic EtOH abuse Monitor w/ mag level daily (6) Hypokalemia: Assessment and Plan: ACUTE K+ 2.8 today 2/2 chronic EtOH abuse Replete w/ 40 meq PO q6h x 2 doses Additional 44 meq given in IV K-Phos (see below) Tele monitoring for cardiac arrhythmia Repeat mag lvl in AM (7) Hypophosphatemia: Assessment and Plan: ACUTE Phos 1.8 today 2/2 chronic EtOH abuse Replete w/ 30 mmol K-phos IVPB today Repeat phos level in AM (8) Anemia: Assessment and Plan: ACUTE Laboratory Tests 05/26/23 05/28/23 17:10 04:43 Hgb 14.4 10.8 L No evidence of active bleeding to date In presence of thrombocytopenia (2/2 liver disease), obtain guaiac stool to r/o occult bleeding Iron studies added on to AM labs Add iron supplementation if indicated Likely d/t IVF hydration/hemodilution in setting of chronic iron deficiency CBC daily (9) Thrombocytopenia: Assessment and Plan: ACUTE Laboratory Tests 05/26/23 05/27/23 05/28/23 17:10 04:39 04:43 Plt Count 133 L 83 L 77 L Likely multifactorial including hemodilution/IV hydration in setting of chronic liver disease (reduced thrombopoiesis) No evidence of splenomegaly on CT abdomen imaging No active bleeding - monitor CBC daily (10) COPD exacerbation: Assessment and Plan: ACUTE Suspected - mild No hypoxia, but tachypnea and reported SOB Solumedrol 125 mg x 1 given in ED Continue Prednisone 40 mg daily burst x 3 days PRN Duonebs (11) Generalized weakness: Assessment and Plan: ACUTE Likely multifactorial 2/2 dehydration, hyponatremia, acute colitis infection, electrolyte disturbances see above PT consult (12) Alcohol abuse: Assessment and Plan: CHRONIC Complete EtOH cessation advised CIWA protocol w/ PRN ativan Seizure precautions (13) Tobacco dependence: Assessment and Plan: CHRONIC Nicoderm patch Complete cessation advised
[2023-05-28] MEDS: PANTOPRAZOLE SODIUM 40 MG VIAL IV (16:18)
[2023-05-28] MEDS: FERROUS SULFATE 325 MG TABLET PO (20:18)
[2023-05-29] VITALS (11 sets, daily range): BP systolic 134–164; BP diastolic 88–98; PULSE 62–91; RESP 18; TEMP 36.7; O2SAT 73–96
[2023-05-29] MEDS: CIPROFLOXACIN IN 5 % DEXTROSE 400 MG/200 ML PIGGYBACK 200 MG IV ×2 (00:10→13:49)
[2023-05-29 06:04] LABS: INR 1.12; Prothrombin Time 11.8 sec (9.0-11.6)
[2023-05-29 06:08] LABS: Basophils Percent Auto 0.3 % (0.2-2.0); Eosinophils Percent Auto 0.2 % (0.9-7.0); Hematocrit 33.3 % (36.0-48.0); Hemoglobin 11.1 g/dL (12.0-16.0); Immature Granulocytes Abs Auto 0.14 10^3/uL (0.00-0.03); Immature Granulocytes Pct Auto 2.2 % (0.0-0.5); Lymphocytes Absolute Auto 1.1 10^3/uL (1.2-3.8); Lymphocytes Percent Auto 16.3 % (20.5-60.0); Mean Corpuscular HGB Conc 33.3 g/dL (29.9-35.2); Mean Corpuscular Hemoglobin 32.8 pg (26.7-34.0); Mean Corpuscular Volume 98.5 fL (81.0-99.0); Mean Platelet Volume 11.2 fL (9.5-13.5); Monocytes Absolute Auto 0.4 10^3/uL (0.3-0.8); Monocytes Percent Auto 6.8 % (1.7-12.0); Neutrophils Absolute Auto 4.8 10^3/uL (1.4-6.5); Neutrophils Percent Auto 74.2 % (43.0-75.0); Platelet Count 73 10^3/uL (150-450); Red Blood Count 3.38 10^6/uL (4.20-5.40); Red Cell Distribution Width 16.6 % (11.0-15.0); White Blood Count 6.5 10^3/uL (4.0-11.0)
[2023-05-29 06:09] LABS: HBsAg Screen Negative (Negative); HCV Ab Non Reactive (Non Reactive); Hep A Ab, IgM Negative (Negative); Hep B Core Ab, IgM Negative (Negative)
[2023-05-29] MEDS: METRONIDAZOLE/SODIUM CHLORIDE 500 MG/100 ML PREMIX 100 MG IV (06:14)
[2023-05-29] MEDS: LORAZEPAM 1 MG TABLET PO (06:17)
[2023-05-29 06:29] LABS: Phosphorus 2.1 mg/dL (2.6-4.7)
[2023-05-29 06:32] LABS: Alanine Aminotransferase 256 U/L (14-59); Albumin Globulin Ratio 0.8; Albumin Level 2.2 g/dL (3.4-5.0); Alkaline Phosphatase 275 U/L (46-116); Aspartate Amino Transferase 173 U/L (15-37); BUN Creatinine Ratio 16.7; Bilirubin Total 1.5 mg/dL (0.2-1.0); Calcium 6.7 mg/dL (8.5-10.1); Carbon Dioxide 29.2 mmol/L (21.0-32.0); Chloride 102 mmol/L (98-107); Estimated GFR (African America >60 (>=60); Estimated GFR (Non-African Ame >60 (>=60); Globulin 2.8 g/dL; Glucose 95 mg/dL (74-106); Potassium 3.2 mmol/L (3.5-5.1); Sodium 137 mmol/L (136-145)
[2023-05-29 06:51] LABS: Magnesium 1.3 mg/dL (1.8-2.4)
[2023-05-29 07:03] LABS: Ammonia 58 umol/L (11-32)
[2023-05-29] MEDS: PREDNISONE 20 MG TABLET 40 MG PO (08:20)
[2023-05-29] MEDS: POTASSIUM CHLORIDE 10 MEQ ER TABLET 40 MEQ PO (08:20)
[2023-05-29] MEDS: FERROUS SULFATE 325 MG TABLET PO (08:20)
[2023-05-29] MEDS: MULTIVITAMIN TABLET 1 TAB PO (08:20)
[2023-05-29] MEDS: NICOTINE 21 MG PATCH.TD24 TD (08:21)
[2023-05-29] MEDS: MAGNESIUM SULFATE IN WATER 4 GM/100 ML PIGGYBACK IV (09:41)
--- NOTE | 2023-05-29 10:02 | CM.NOTE ---
Rounds made with Dr. Luu. Potential plan for discharge today.
[2023-05-29] MEDS: POTASSIUM PHOS/SODIUM PHOS 250 MG TABLET 2 TAB PO ×2 (10:28→13:37)
--- NOTE | 2023-05-29 11:23 | P.DS_ITS ---
<Statement entered by Lionel Luu MD - 05/29/23 19:35> This documentation has been reviewed and approved. Patient seen and examined this morning. She feels improved although not back to her baseline. Currently not having any with alcohol withdrawal symptoms. She has had some difficulty with blood pressure control overnight which we could be a precursor to that. Agree with input and diagnoses provided by nurse practitioner. Ammonia level is elevated and agree with treating as an outpatient on a chronic basis. Continue other supplementations as documented by nurse practitioner. DS: Providers Provider Date of admission: 05/28/23 08:31 Primary care physician: Non-Staff PhysicianMD Consults: 05/27/23 13:38 Physical Therapy Eval and Treat Routine Reason for consultation: Generalized weakness Has provider been notified: No 05/27/23 13:40 Consult to Farrowing Worker Routine Reason for consult:: Other Other reason:: Tobacco/EtOH cessation helps; Medicaid [place] assistance 05/28/23 08:24 Consult to Dietitian Routine Reason For Exam: Protein kelsie malnutrition Reason for consultation: protein kelsie malnutrition Has provider been notified: No Discharging clinician: Sofie Marquis DS: Diagnosis Discharge Diagnosis (1) Acute colitis: (2) Elevated LFTs: (3) Hyponatremia: (4) Hyperammonemia: (5) Hypomagnesemia: (6) Hypokalemia: (7) Hypophosphatemia: (8) Anemia: (9) Thrombocytopenia: (10) COPD exacerbation: (11) Generalized weakness: (12) Alcohol abuse: (13) Tobacco dependence: DS: Summary Hospital Course Hospital Course: The patient was admitted with significant transaminitis, hyponatremia, mild COPD exacerbation, and acute colitis with associated colicky abdominal pain and diarrhea. Her colitis was treated with IVPB Cipro and Flagyl and her symptoms have completely resolved. No further antibiotics are indicated as she has completed a 3-day course, her symptoms have resolved, and her diarrhea was non- bloody. Significant transaminitis was suspected secondary to chronic EtOH abuse. CT of the abdomen revealed hepatic steatosis without evidence of ascites or obstruction. A follow-up RUQ US was obtained to definitively rule out obstruction and this was negative except for confirming hepatomegaly and hepatic steatosis. An acute hepatitis panel was negative. The patient was strongly counseled to completely stop EtOH intake. A follow-up ammonia level was obtained and this was also noted to be elevated and she was initiated on lactulose dosing. The ammonia level improved but did not completely resolved to normal by the time of discharge. No evidence of hepatic encephalopathy was noted during her stay and she was discharged home with continued lactulose dosing. Her hyponatremia was treated with IV fluids and suspected secondary to dehydration. This resolved with IV fluid administration and did not recur during her stay. Her mild COPD exacerbation was treated with steroids and she had no further shortness of breath during her stay. The patient developed other electrolyte abnormalities including hypomagnesemia, hypophosphatemia, and hypokalemia. These were treated with a combination of IV and p.o. supplementation. She was asymptomatic at the time of discharge, but remains at risk for further electrolyte disturbances due to her alcohol abuse history. In addition to lactulose, the patient was prescribed calcium carbonate, ferrous sulfate, magnesium oxide, and Multivite with folic acid. She is to follow-up with her PCP within 3 to 5 days and we recommend repeat CMP, mag, phosphorus, and ammonia levels be drawn to continue to monitor. Time Spent with Patient Time attestation: Total time spent providing and/or coordinating discharge services: Time spent: greater than 30 minutes Specific discharge activities: Physical exam, discussion of discharge plan, questions answered. Exam Constitutional Vital Signs, click to edit/add: Last Vital Signs Temp 98.1 F 05/29/23 05:42 Pulse 74 05/29/23 09:57 Resp 18 05/29/23 07:27 BP 163/98 H 05/29/23 08:00 Pulse Ox 96 05/29/23 05:42 O2 Del Method Room Air 05/29/23 05:42 Common normals: no apparent distress, oriented x3 and alert General appearance: cooperative Orientation/consciousness: Yes awake HENMT Common normals: normocephalic and head/scalp atraumatic Eye Common normals: PERRL, EOMs intact bilaterally, conjunctivae normal and no scler al icterus Respiratory Common normals: normal respiratory effort and no use of accessory muscles Effort & inspection: able to speak in complete sentences and symmetric chest movement Auscultation: wheezes (Faint I&E BLL) Cardio Common normals: no JVD, regular rate, regular rhythm, S1 normal heart sound, S2 normal heart sound, no murmurs and peripheral pulses 2+ throughout GI Common normals: Normal to inspection, nondistended, normoactive bowel sounds present, soft to palpation and non-tender Bladder/kidney exam: bladder normal to palpation Extremity Common normals: normal to inspection, full ROM, normal capillary refill and no pedal edema General: no clubbing and no cyanosis Neuro Common normals: moves all extremities, no focal motor deficits and no sensory deficits noted Speech: speech normal Psych Common normals: mental status grossly normal and activity/motor behavior normal DS: Data Data Completed and Pending Labs on day of discharge: Labs from last 24 hours 05/29/23 05/26/23 05:32 19:11 WBC 6.5 RBC 3.38 L Hgb 11.1 L Hct 33.3 L MCV 98.5 MCH 32.8 MCHC 33.3 RDW 16.6 H Plt Count 73 L MPV 11.2 Neut % (Auto) 74.2 Lymph % (Auto) 16.3 L Steele % (Auto) 6.8 Eos % (Auto) 0.2 L Baso % (Auto) 0.3 Neut # (Auto) 4.8 Lymph # (Auto) 1.1 L Steele # (Auto) 0.4 Eos # (Auto) 0.0 Baso # (Auto) 0.0 Abs Immat Gran (auto) 0.14 H Imm/Tot Granulo (auto) 2.2 H PT 11.8 H INR 1.12 Sodium 137 Potassium 3.2 L Chloride 102 Carbon Dioxide 29.2 Anion Gap 9.0 BUN 10.0 Creatinine 0.60 Est GFR ( Amer) >60 Est GFR (Non-Af Amer) >60 BUN/Creatinine Ratio 16.7 Glucose 95 Calcium 6.7 L Phosphorus 2.1 L Magnesium 1.3 L Total Bilirubin 1.5 H AST 173 H ALT 256 H Alkaline Phosphatase 275 H Ammonia 58 H* Total Protein 5.0 L Albumin 2.2 L Globulin 2.8 Albumin/Globulin Ratio 0.8 Hepatitis A IgM Ab Negative Hep Bs Antigen Negative Hep B Core IgM Ab Negative Hepatitis C Antibody Non reactive Hepatitis C Interp Comment Preliminary micro results at discharge 05/26/23 18:05 - Preliminary Blood NO GROWTH AT 36-48 HOURS. FINAL TO FOLLOW. 05/26/23 17:57 Blood Culture Result 1 - Preliminary Blood NO GROWTH AT 36-48 HOURS. FINAL TO FOLLOW. Discharge Plan Discharge Disposition: Home, Self-Care Discharge Medications: New lactulose 20 gram/30 mL solution 20 g PO TID Qty: 2880 0RF calcium carbonate 200 mg calcium (500 mg) Tablet,Chewable 500 mg PO TID Qty: 90 0RF ferrous sulfate 325 mg (65 mg iron) Tablet 325 mg PO BID Qty: 60 0RF multivitamin with folic acid [Tab-A-Yolette] 400 mcg Tablet 1 tab PO QD Qty: 30 0RF magnesium oxide 400 mg magnesium tablet 400 mg PO BID Qty: 60 0RF Continued Capmist DM 60-15-400 mg tablet 1 tab PO Q4H Discontinued prednisone 20 mg tablet 20 mg PO BID Patient Comments: pt states that she only had 1 more left Patient Instructions: Cirrhosis of the Liver (ED), Hyponatremia (ED), Hypokalemia (ED), Hypomagnesemia (ED), Hypophosphatemia (ED) Activity Restrictions/Additional Instructions: - Stop drinking alcohol completely - Recommend tobacco cessation - Recommend follow up CMP, Mag, Phosphorous, Ammonia levels per Gregoria Ley after discharge Forms: Portal Instructions Follow Up Appointments: @ 9:30am with Gregoria Ley NP [id number] [facility] [phone] Discharge Date/Time: 05/29/23 13:39
[2023-05-30 05:07] LABS: Transferrin 146 mg/dL (192-364)
--- NOTE | 2023-06-02 15:43 | CM.DCFOLLOWU ---
Person spoke with: patient How are you feeling? starting to feel better How is your pain? no pain, tired Did you understand your discharge instructions? yes Do you have any questions about your discharge instructions? no Were you given any prescriptions at discharge? yes Were you able to get your prescriptions filled? yes Do you understand how to take your medications as ordered? yes Do you have any questions about your follow up appointment and do you plan to keep your follow up appointment? no questions, follow up on 06/04/23 Is there anything else that you would like to discuss? no Questions/Comments/Concerns/Other: N/A
== END 2023-05-29 13:39 | disposition home or self-care (01) | DRG 641 ==
LOC: ER 21:12 → MS 21:31
PROVIDERS: Emergency Medicine; Registered Nurse; Admitting Provider Family Medicine; Emergency Provider Internal Medicine; Visit Provider Nurse Practitioner
DX: E87.1 Hypo-osmolality and hyponatremia (principal); J44.1 Chronic obstructive pulmonary disease with (acute) exacerbation; E72.20 Disorder of urea cycle metabolism, unspecified; F10.139 Alcohol abuse with withdrawal, unspecified; K52.9 Noninfective gastroenteritis and colitis, unspecified; R53.1 Weakness; D69.6 Thrombocytopenia, unspecified; E83.42 Hypomagnesemia; E87.6 Hypokalemia; E83.39 Other disorders of phosphorus metabolism; D64.9 Anemia, unspecified; K70.9 Alcoholic liver disease, unspecified; F17.210 Nicotine dependence, cigarettes, uncomplicated; F10.10 Alcohol abuse, uncomplicated; Z20.822 Contact with and (suspected) exposure to COVID-19; K76.0 Fatty (change of) liver, not elsewhere classified; E86.0 Dehydration; R74.01 Elevation of levels of liver transaminase levels; Z90.711 Acquired absence of uterus with remaining cervical stump; E83.41 Hypermagnesemia; Y90.0 Blood alcohol level of less than 20 mg/100 ml; R25.1 Tremor, unspecified
CPT/HCPCS: 36415; 71045; 74177; 76705; 80053; 80061; 80074; 80307; 80320; 81003; 82140; 82150; 82248; 82607; 82728; 82746; 83540; 83550; 83605; 83690; 83735; 84100; 84145; 84466; 85007; 85025; 85027; 85610; 85730; 87040; 87070; 87493; 87804; 87811; 93005; 94640; 96361; 96365; 96366; 96367; 96368; 96375; 96376; 97161; 99285; G0378; J0744; J1836; J2920; J2930; J3475; J7512; Q9967

== ENCOUNTER 2023-06-06 09:31 | Outpatient (OUT) | payer MEDICAID, SELFPAY ==
--- OUTSIDE RECORDS SUMMARY | 2023-06-06 09:48 | XMS_ITS | CCD ---
Author Name Unknown Address [address] [place] [address] Organization [facility] Care Team Providers Care Supervisor Engraving Name Role Phone SUPA BOLDEN Consulting Unavailabl e REINECK, DR JODIE Palacios Attending Unavailabl e HAIDERECK, DR JODIE Palacios Admitting Unavailabl e REQUEST, DR SKY LISTED Primary Care Booker SOL, DR BUTTERFIELD Primary Care Unavailable AGUEDA ., DR ALEMAN Attending Unavailable AGUEDA ., DR ALEMAN Consulting Unavailable HAY ., DR ALEMAN Admitting PERLA Sanchez Consulting Unavailable Results Test Name Value Interpretation Reference Range Facil ity XR RIBS LT PA Damon 3 XR RIBS LT PA CH EXAM: XR RIBS LT PA CH HISTORY: Pain; patient states posterior lateral left-sided rib pain following a fall last Friday. COMPARISON: None. TECHNIQUE: PA chest and 3 views of the left-sided ribs performed. FINDINGS: There is a healing or healed fracture deformity of the left clavicle. There is an old fracture along the lateral margin of the left sixth rib. There is an acute mildly displaced fracture along the lateral margin of the left seventh rib. There is no pneumothorax. There is mild dextroscoliosis of the thoracic spine. There is resection of the distal right clavicle. The trachea is unremarkable. The heart size is normal. The heart and mediastinal silhouette and hilar shadows are unremarkable. The lung david are clear. IMPRESSION: There is an acute mildly displaced fracture along the lateral margin of the left seventh rib. There is no pneumothorax. There is an old fracture along the lateral margin of the left sixth rib. There is a healing or healed fracture of the left clavicle. Correlation with clinical findings recommended to determine the age of this. Electronically authenticated by: PERLA ANDERSEN Date: 2022-08-27 09:28 Normal [facility] Encounters Encounter Date Encounter Type Care Provider Facility Start: 09-03-2022 End: 09-03-2022 ambulatory SUPA HOUSTON . Facility:H1 Start: 08-27-2022 End: 08-27-[address] DOCTOR SOL Facility:H1 Payers Date Payer Category Payer Unknown [id number] [id number] 1970 Unknown [id number] 1960 Self-pay [id number] Summary Purpose Family History No Family History Records Found Advance Directives No Advanced Directives Records Found Additional Source Comments INFORMATION SOURCE (unrecogn ized section and content) DATE CREATED AUTHOR 09/04/2022 The [facility] FOR RECORDS PERTAINING TO PATIENTS WHO ARE OR HAVE BEEN ENROLLED IN A CHEMICAL DEPENDENCY/SUBSTANCEABUSE PROGRAM, SOME INFORMATION MAY BE OMITTED. This clinical summary was aggregated from multiple sources. Caution should be exercised in using it in the provision of clinical care. This summary normalizes information from multiple sources, and as a consequence, information in this document may materially change the coding, format and clinical context of patient data. In addition, data may be omitted in some cases. CLINICAL DECISIONS SHOULD BE BASED ON THE PRIMARY CLINICAL RECORDS. [employer] provides no warranty or guarantee of the accuracy or completeness of information in this document.
[2023-06-06 10:16] LABS: Ammonia 37 umol/L (11-32)
[2023-06-06 13:58] LABS: Alanine Aminotransferase 55 U/L (14-59); Albumin Globulin Ratio 0.8; Alkaline Phosphatase 129 U/L (46-116); Anion Gap 12.4; Aspartate Amino Transferase 25 U/L (15-37); BUN Creatinine Ratio 21.3; Bilirubin Total 0.4 mg/dL (0.2-1.0); Calcium 9.5 mg/dL (8.5-10.1); Carbon Dioxide 27.7 mmol/L (21.0-32.0); Chloride 105 mmol/L (98-107); Estimated GFR (African America >60 (>=60); Estimated GFR (Non-African Ame >60 (>=60); Globulin 3.9 g/dL; Glucose 101 mg/dL (74-106); Magnesium 1.7 mg/dL (1.8-2.4); Phosphorus 4.9 mg/dL (2.6-4.7); Potassium 4.1 mmol/L (3.5-5.1); Sodium 141 mmol/L (136-145); Total Protein 6.9 g/dL (6.4-8.2)
== END 2023-06-06 09:32 | disposition home or self-care (01) ==
PROVIDERS: PCP Nurse Practitioner Family; Visit Provider Nurse Practitioner Family
DX: F10.10 Alcohol abuse, uncomplicated (principal)
CPT/HCPCS: 36415; 80053; 82140; 83735; 84100

== ENCOUNTER 2023-08-04 23:20 | Outpatient (REF) | payer MEDICAID, SELFPAY ==
--- OUTSIDE RECORDS SUMMARY | 2023-08-05 14:56 | XMS_ITS | CCD ---
Author Organization [facility] Care Team Providers Care Route Sales Specialist Name Role Phone SUPA BOLDEN Consulting Unavailchidi [...] by: PERLA ANDERSEN Date: 2022-08-27 09:28 Normal [facility] Encounters Encounter Date Encounter Type Care Provider Facility Start: 09-03-2022 End: 09-03-2022 ambulatory SUPA HOUSTON . Facility: Start: 08-27-2022 End: 08-27-[address] BUTTERFIELD [facility] Facility:H1 Payers Date Payer Category Payer Unknown [id number] [id number] [id number] 1970 Unknown [id number] [id number] [id number] 1960 Self-pay [id number] Summary Purpose Family History No Family History Records Found Advance Directives No Advanced Directives Records Found Additional Source Comments INFORMATION SOURCE (unrecogn ized section and content) DATE CREATED AUTHOR 09/04/2022 The [facility] FOR RECORDS PERTAINING TO PATIENTS WHO [...] BE BASED ON THE PRIMARY CLINICAL RECORDS. [facility] [employer] [facility]. provides no warranty or guarantee of the accuracy or completeness of information in this document.
[2023-08-05 15:51] LABS: Occult Blood Negative
== END 2023-08-04 23:21 | disposition home or self-care (01) ==
LOC: LAB 23:20
PROVIDERS: PCP Nurse Practitioner Family; Visit Provider Nurse Practitioner Family
DX: R53.83 Other fatigue (principal)
CPT/HCPCS: G0328

== ENCOUNTER 2023-08-05 14:48 | Outpatient (OUT) | payer MEDICAID, SELFPAY ==
--- OUTSIDE RECORDS SUMMARY | 2023-08-04 15:38 | XMS_ITS | CCD ---
Author Organization [facility] Care Team Providers Care Forensic Analyst Name Role Phone SUPA BOLDEN Consulting Unavailchidi OLIVER, DR JODIE Palacios Attending Unavailchidi e BENITO, DR JODIE Palacios Admitting Unavailchidi e ESPINOZA, DR SKY LISTED Primary Care Booker SOL, DR BUTTERFIELD Primary Care Unavailable AGUEDA ., DR ALEMAN Attending Unavailable AGUEDA ., DR ALEMAN Consulting Unavailable AGUEDA ., DR ALEMAN Admitting Unavailable PERLA ANDERSEN Consulting Unavailable Results Test Name Value Interpretation [...] by: PERLA ANDERSEN Date: 2022-08-27 09:28 Normal [facility] Encounters Encounter Date Encounter Type Care Provider Facility Start: 09-03-2022 End: 09-03-2022 ambulatory SUPA HOUSTON . Facility: Start: 08-27-2022 End: 08-27-[address] BUTTERFIELD [facility] Facility:H1 Payers Date Payer Category Payer Unknown [id number] [id number] 1970 Unknown [id number] [id number] 1960 Self-pay [id number] Summary Purpose Family History No Family History Records Found Advance Directives No Advanced Directives Records Found Additional Source Comments INFORMATION SOURCE (unrecogn ized section and content) DATE CREATED AUTHOR 09/04/2022 The [facility] FOR RECORDS PERTAINING TO PATIENTS WHO ARE [...] BE BASED ON THE PRIMARY CLINICAL RECORDS. [facility]. provides no warranty or guarantee of the accuracy or completeness of information in this document.
--- OUTSIDE RECORDS SUMMARY | 2023-08-05 14:54 | XMS_ITS | CCD ---
Author Organization [facility] Care Team Providers Care Transit Proof Machine Operator Name Role Phone SUPA BOLDEN Consulting Unavailchidi [...] by: PERLA ANDERSEN Date: 2022-08-27 09:28 Normal [facility] Encounters Encounter Date Encounter Type Care Provider Facility Start: 09-03-2022 End: 09-03-2022 ambulatory SUPA HOUSTON . Facility: Start: 08-27-2022 End: 08-27-[address] BUTTERFIELD [facility] Facility:H1 Payers Date Payer Category Payer Unknown [id number] [id number] [id number] 1970 Unknown [id number] [id number] [id number] 1960 Self-pay [id number] Summary Purpose Family History No Family History Records Found Advance Directives No Advanced Directives Records Found Additional Source Comments INFORMATION SOURCE (unrecogn ized section and content) DATE CREATED AUTHOR 09/04/2022 The [facility] FOR RECORDS PERTAINING TO PATIENTS WHO ARE [...] BE BASED ON THE PRIMARY CLINICAL RECORDS. [facility] [employer] [facility]. provides no warranty or guarantee of the accuracy or completeness of information in this document.
[2023-08-05 15:18] LABS: Estimated Average Glucose 97 mg/dL
[2023-08-05 15:19] LABS: Basophils Percent Auto 0.5 % (0.2-2.0); Eosinophils Percent Auto 0.4 % (0.9-7.0); Hematocrit 36.6 % (36.0-48.0); Hemoglobin 12.2 g/dL (12.0-16.0); Immature Granulocytes Abs Auto 0.04 10^3/uL (0.00-0.03); Immature Granulocytes Pct Auto 0.5 % (0.0-0.5); Lymphocytes Absolute Auto 0.6 10^3/uL (1.2-3.8); Lymphocytes Percent Auto 8.2 % (20.5-60.0); Mean Corpuscular HGB Conc 33.3 g/dL (29.9-35.2); Mean Corpuscular Volume 101.9 fL (81.0-99.0); Monocytes Absolute Auto 0.9 10^3/uL (0.3-0.8); Monocytes Percent Auto 11.5 % (1.7-12.0); Neutrophils Absolute Auto 6.1 10^3/uL (1.4-6.5); Neutrophils Percent Auto 78.9 % (43.0-75.0); Platelet Count 208 10^3/uL (150-450); Red Blood Count 3.59 10^6/uL (4.20-5.40); Red Cell Distribution Width 15.4 % (11.0-15.0); White Blood Count 7.8 10^3/uL (4.0-11.0)
[2023-08-05 15:54] LABS: Alanine Aminotransferase 27 U/L (14-59); Albumin Globulin Ratio 1.2; Albumin Level 3.9 g/dL (3.4-5.0); Alkaline Phosphatase 110 U/L (46-116); Anion Gap 16.7; Aspartate Amino Transferase 41 U/L (15-37); BUN Creatinine Ratio 6.8; Bilirubin Total 0.9 mg/dL (0.2-1.0); Calcium 8.8 mg/dL (8.5-10.1); Chloride 96 mmol/L (98-107); Cholesterol 246 mg/dL (<=200); Estimated GFR (African America >60 (>=60); Estimated GFR (Non-African Ame >60 (>=60); Free T3 3.77 pg/mL (2.18-3.98); Globulin 3.2 g/dL; Glucose 97 mg/dL (74-106); HDL Cholesterol 182 mg/dL (40-60); Sodium 135 mmol/L (136-145); Thyroid Stimulating Hormone 4.472 uIU/mL (0.358-3.740); Total Protein 7.1 g/dL (6.4-8.2); Triglycerides 40 mg/dL (<=150)
[2023-08-05 16:05] LABS: Potassium 2.7 mmol/L (3.5-5.1)
[2023-08-05 16:09] LABS: Chol HDL Ratio 1.4
== END 2023-08-05 14:49 | disposition home or self-care (01) ==
LOC: LAB 14:48
PROVIDERS: PCP Nurse Practitioner Family; Visit Provider Nurse Practitioner Family
DX: R53.83 Other fatigue (principal)
CPT/HCPCS: 36415; 80053; 80061; 82306; 83036; 83525; 83540; 84436; 84443; 84481; 85025

== ENCOUNTER 2025-03-20 10:43 | Emergency (ER) | payer OTHER, SELFPAY ==
--- OUTSIDE RECORDS SUMMARY | 2023-10-08 10:45 | XMS_ITS ---
Author Organization The [facility] [place] Address [address] [place] [address] Care Team Providers Care Hand Stemmer Name Role Phone Gregoria Ley Primary Care Provider PAULINO LUU [phone] REASON FOR VISIT sick-Myrna patient Encounters Encounter Location Date Provider Diagnosis [facility] [address] [facility] [place] [address] 10/08/2023 PAULINO LUU Plan Of Treatment No Information Progress Notes * Du ABEBE ADOB: [birth year] (54 yo F)Acc No.[id number]:10/08/2023 UNLOCKED PROGRESS NOTE Progress Note Patient: Du ORTIZ :?Paulino Luu M.D.:1970???Age:53 Y ???Sex:FemaleDate:4Phone:[phone]:[address] [place], [place]-[address]Pcp:Gregoria Ley Subjective: * Chief Complaints: * 1 . sick-Myrna patient. * Medical History: Objective: * Vitals: Assessment: Plan: * Treatment: * * Electronic signature of PAULINO LUU MD on 03/20/2025 at 11:28 AM ESTSign off status: PendingVisit Status:?CANCPHONE (Cancelled Phone) * Provider: Rodrigo Luu M.D. Date: 0 10/08/2023 Generated for Printing/Faxing/eTransmitting on:?03/20/2025 11:28 AM EST
[2025-03-20 10:49] VITALS: BP 148/98; PULSE 107; TEMP 36.7; O2SAT 98; BMI 16.9
--- NOTE | 2025-03-20 10:54 | XR_ITS ---
The [address] [address] Patient Name: ADRIAN ABEBE MRN: [id number] date: 1970 Sex: F Assigned Patient Location: ED.MAIN Current Patient Location: ED.MAIN Accession/Order Number: [id number] Exam Date: 03/20/2025 10:55 Report Date: 03/20/2025 11:17 At the request of: IMELDA CARDOZA MD Procedure: XR foot RT min 3V XR foot RT min 3V 03/20/2025 11:02 AM SIGNS AND SYMPTOMS: Right foot pain, difficulty weightbearing PROTOCOL: Frontal, lateral, and oblique radiographs of the right foot COMPARISON: None FINDINGS: There is narrowing of the first metatarsophalangeal joint. There is accompanying spurring. There is soft tissue swelling in the adjacent soft tissues. There is no evidence of fracture. There is plantar surface calcaneal spurring. XR/XR foot RT min 3V IMPRESSION: No fracture or dislocation. Degenerative changes are noted in the first metatarsophalangeal joint. There is accompanying soft tissue swelling along the adjacent soft tissues. Impression dictated by: Trevon Sims M.D. 03/20/2025 11:17 AM Dictation Location: [place] [address] Electronically authenticated by: [id number] Y Date: 03/20/2025 11:17
--- NOTE | 2025-03-20 11:04 | ED.GENADUL1 ---
HPI HPI - General Adult General Chief complaint: Extremity Injury, Lower Stated complaint: FALL- 03/19/25; R FOOT PAIN Time Seen by Provider: 03/20/25 11:01 Source: patient Mode of arrival: Wheelchair Limitations: no limitations History of Present Illness HPI narrative: 54-year-old female presents for right foot pain. Last night she tripped over her dog and hit her foot. She points to the dorsum of the foot. No pain in the ankle and no other injury was sustained. Related Data Home Medications ?Medication ?Instructions ?Recorded ?Confirmed pseudoephedrine 60 mg-DM 15 1 tab PO Q4H 05/26/23 05/26/23 mg-guaifenesin 400 mg tablet (Capmist DM) Previous Rx's ?Medication ?Instructions ?Recorded calcium carbonate 500 mg (2.5 x 200 mg calcium (500 05/29/23 mg)) PO TID #90 tabs ferrous sulfate 325 mg (65 mg 325 mg PO BID #60 tabs 05/29/23 iron) tablet lactulose 20 gram/30 mL oral 20 g (30 mL) PO TID #2,880 mL 05/29/23 solution magnesium oxide 400 mg PO BID #60 tabs 05/29/23 multivitamin with folic acid 400 1 tab PO QD #30 tabs 05/29/23 mcg tablet (Tab-A-Yolette) ibuprofen 800 mg tablet 800 mg PO Q8H PRN pain #20 tabs 03/20/25 Allergies Allergy/AdvReac Type Severity Reaction Status Date / Time No Known Drug Allergies Allergy Verified 05/26/23 17:01 Opioid HPI Opioid Management Most Recent Opioid Data: Ur Phencyclidine Scrn, (NEGATIVE) Negative 05/26/23, 17:15 Review of Systems ROS Narrative A ten point review of systems is negative except as noted above. PFSH PFSH Medical History (Updated 03/20/25 @ 11:32 by Dawit Beauchamp MD) Alcohol abuse ?F10.10 - Alcohol abuse, uncomplicated (ICD-10) Tobacco dependence ?F17.200 - Nicotine dependence, unspecified, uncomplicated (ICD-10) Surgical History (Updated 05/26/23 @ 21:59 by Elizabeth Feliciano) History of partial hysterectomy ?Z90.711 - Acquired absence of uterus with remaining cervical stump (ICD-10) Family History (Updated 05/26/23 @ 21:55 by Elizabeth Feliciano) Mother Family history of COPD (chronic obstructive pulmonary disease) Family history of hypertension Grandmother Family history of COPD (chronic obstructive pulmonary disease) Family history of cancer Grandfather Family history of cancer Father Brain aneurysm Social History (Updated 05/26/23 @ 22:00 by Elizabeth Feliciano) Within the past year, how often did you have a drink containing alcohol: 4 or more times a week Within the past year, how many standard drinks containing alcohol did you have on a typical day: 3 or 4 Within the past year, how often did you have six or more drinks on one occasion: never Total score: 2 Score interpretation: A score of 3 or more indicates drinking is likely to affect patient's safety. Smoking status: Current every day smoker Nicotine containing products detail: smokes pack daily Non-prescribed substance use: cannabis (any form) Non-prescribed substance use details: smokes -last time was 05/25/23 and has gummies that she used last week Highest level of school completed/degree received: 11th grade Little interest or pleasure in doing things: not at all Feeling down, depressed, or hopeless: not at all Gender Identity: female Exam Narrative Exam Narrative: Nurses note and vital signs reviewed General:The patient appears uncomfortable and in no acute distress Skin:Warm, dry, no pallor noted.There is no rash noted. Head:Normocephalic, atraumatic Eye: Normal conjunctiva, no drainage Ears, Nose, Mouth, and Throat: oral mucosa is moist. Nares patent. Cardiovascular:Regular Rate and Rhythm Respiratory:Patient is in no distress, no accessory muscle use, lungs are clear to auscultation, no wheezing, rales or rhonchi Back:non-tender GI: Soft and nontender Musculoskeletal: Left foot has bruising on the dorsum. Ankle is nontender. Neurological:A&O, normal speech Psychiatric:Cooperative Constitutional Vital Signs, click to edit/add: Last Vital Signs Temp 98.0 F 03/20/25 10:49 Pulse 107 H 03/20/25 10:49 Resp 18 03/20/25 10:49 BP 148/98 H 03/20/25 10:49 Pulse Ox 98 03/20/25 10:49 O2 Del Method Room Air 03/20/25 10:49 Course Vital Signs Vital signs: Vital Signs Temperature 98.0 F 03/20/25 10:49 Pulse Rate 107 H 03/20/25 10:49 Respiratory Rate 18 03/20/25 10:49 Blood Pressure 148/98 H 03/20/25 10:49 Pulse Oximetry 98 03/20/25 10:49 Oxygen Delivery Method Room Air 03/20/25 10:49 Temperature 98.0 F 03/20/25 10:49 Pulse Rate 107 H 03/20/25 10:49 Respiratory Rate 18 03/20/25 10:49 Blood Pressure 148/98 H 03/20/25 10:49 Pulse Oximetry 98 03/20/25 10:49 Oxygen Delivery Method Room Air 03/20/25 10:49 Medical Decision Making MDM Narrative Medical decision making narrative: X-rays negative per radiologist. The patient is up-to-date on her tetanus status and she was prescribed ibuprofen. Treatment diagnosis and follow-up were discussed with the patient. Differential Diagnosis Differential Diagnosis: Fracture, contusion Imaging Data Foot x-ray: Radiologist's impression: ITS Impressions Foot X-Ray 03/20/25 10:54 IMPRESSION: No fracture or dislocation. Degenerative changes are noted in the first metatarsophalangeal joint. There is accompanying soft tissue swelling along the adjacent soft tissues. Impression dictated by: Trevon Sims M.D. 03/20/2025 11:17 AM Dictation Location: [employer] Electronically authenticated by: [id number] Y Date: 03/20/2025 11:17 Discharge Plan Discharge Chief Complaint: Extremity Injury, Lower Clinical Impression: Contusion of right foot Patient Disposition: Home, Self-Care Time of Disposition Decision: 11:32 Condition: Good Mode of Transportation: Private Vehicle Prescriptions / Home Meds: New ibuprofen 800 mg tablet 800 mg PO Q8H PRN (Reason: pain) Qty: 20 0RF No Action Capmist DM 60-15-400 mg tablet 1 tab PO Q4H lactulose 20 gram/30 mL solution 20 g PO TID Qty: 2880 0RF calcium carbonate 200 mg calcium (500 mg) Tablet,Chewable 500 mg PO TID Qty: 90 0RF ferrous sulfate 325 mg (65 mg iron) Tablet 325 mg PO BID Qty: 60 0RF multivitamin with folic acid [Tab-A-Yolette] 400 mcg Tablet 1 tab PO QD Qty: 30 0RF magnesium oxide 400 mg magnesium tablet 400 mg PO BID Qty: 60 0RF Print Language: Russian Instructions: Foot Contusion (ED) Referrals: NADJA SIMON [Primary Care Provider, Family Practice] - 1 week
--- OUTSIDE RECORDS SUMMARY | 2025-03-20 11:27 | XMS_ITS | CCD ---
Author Organization [facility] Inform ion Partnership [facility] Care Team Providers Care Metal Pickling Equipment Operator Name Role Phone SUPA BOLDEN Consulting Unavailchidi e BENITO, DR JODIE Palacios Attending Unavailchidi OLIVER, DR JODIE Palacios Admitting Unavailchidi e REQUEST, DR SKY LISTED Primary Care Booker SOL, DR BUTTERFIELD Primary Care Unavailable AGUEDA ., DR ALEMAN Attending Unavailable AGUEDA ., DR ALEMAN Consulting Unavailable AGUEDA ., DR ALEMAN Admitting Unavailable PERLA ANDERSEN Consulting Unavailable Results Test NameValueInterpretationReference RangeFacilityXR RIBS LT PA Damon 08-27-2022 XR RIBS LT PA CHEXAM: XR RIBS LT PA CH HISTORY: Pain; [...] Electronically authenticated by: PERLA ANDERSEN Date: 2022-08-27 09:28[facility] Encounters Encounter DateEncounter TypeCare ProviderFacilityStart: 09-03-2022 End: [id number] NITHYA HOUSTON .Facility:U1Dbsso: 08-27-2022 End: [id number] DOCTOR MISCFacility:H1 Payers DatePayer CategoryPayerPolicy [id number] Summary Purpose Family History No Family History Records Found Advance Directives No Advanced Directives Records Found Additional Source Comments INFORMATION SOURCE (unrecogn ized section and content) DATE CREATED AUTHOR 09/04/2022 The [facility] FOR RECORDS PERTAINING TO PATIENTS WHO ARE [...] BE BASED ON THE PRIMARY CLINICAL RECORDS. [employer] provides no warranty or guarantee of the accuracy or completeness of information in this document.
--- OUTSIDE RECORDS SUMMARY | 2025-03-20 11:29 | XMS_ITS | Patient Health Record ---
Author Organization [facility] in [place] Address [address] [place] [address] Care Team Providers Care Tobacco Stripper Hand Name Role Phone Gregoria Ley Primary Care Provider [phone] [place] [phone] Allergies No Known Allergies Results Component Value Reference Range Notes XR foot RT min 3V (Not yet r eviewed by provider) Interpretation: Performing Lab: Notes/Report: Source Facility: [place] [address] XRay Report Signed Patient: DU ABEBE MR#: [id number] : 1970 Acct:[id number] Age/Sex: 54 / F ADM Date: Loc: ER Attending Dr: Ordering Physician: Imelda Cardoza M.D. Date of Service: 03/20/25 Procedure(s): XR foot RT min 3V Accession Number(s): [id number] cc: GREGORIA LEY ; Imelda Cardoza M.D. [facility] [place] [address] Patient Name: UD ABEBE MRN: [id number] date: 1970 Sex: F Assigned Patient Location: ED.MAIN Current Patient Location: ED.MAIN Accession/Order Number: [id number] Exam Date: 03/20/2025 10:55 Report Date: 03/20/2025 11:17 At the request of: IMELDA CARDOZA MD Procedure: XR foot RT min 3V XR foot RT min 3V 03/20/2025 11:02 AM SIGNS AND SYMPTOMS: Right foot pain, difficulty weightbearing PROTOCOL: Frontal, lateral, and oblique radiographs of the right foot COMPARISON: None FINDINGS: There is narrowing of the first metatarsophalangeal joint. There is accompanying spurring. There is soft tissue swelling in the adjacent soft tissues. There is no evidence of fracture. There is plantar surface calcaneal spurring. XR/XR foot RT min 3V IMPRESSION: No fracture or dislocation. Degenerative changes are noted in the first metatarsophalangeal joint. There is accompanying soft tissue swelling along the adjacent soft tissues. Impression dictated by: Treovn Sims M.D. 03/20/2025 11:17 AM Dictation Location: [facility] Electronically authenticated by: [id number] Y Date: 03/20/2025 11:17 Dictated By: Trevon Sims M.D. Signed By: 03/20/25 1119 DD/ 1117 TD/TT: Relocation Services Specialist: Reason For Referral No Information Medications Medication SIG (Take, Route, Frequency, Duration) Notes Start Date End Date Status Calcium 500 MG 1 tablet with meals Orally 3 jvue es a day; Duration: 30 days 4ActiveHyoscyamine Sulfate 0.125 MG1-2 tabs SL SL three times a day as needed; Duration: 30 days5ActiveVentolin HFA 108 (90 Base) MCG/ACT2 puff as needed Inhalation every 4 hrs; Duration: 4Active Social History Tobacco Use: Social History Observation Description Date Details (start date - stop date) Current Smoker 04/21/1987 - NA Tobacco Use/Smoking Question Answer Notes Patient is a current smoker When did you start smoking?04/21/1987How often do you smoke cigarettes?every day How many cigarettes a day do you smoke?11-20How soon after you wake up do you smoke your first cigarette?6-30 minutesAre you interested in quitting?Thinking about quittingAlcohol Screen (Audit-C) Question Answer Notes Did you have a drink containing alcohol in the p ast year? Yes How often did you have 6 or more drinks on one occasion in the past year?Two to four times a month (2 points)How many drinks did you have on a typical day when you were drinking in the past year?3 or 4 drinks (1 point)How often did you have a drink containing alcohol in the past year?Daily or almost daily (4 points) Gvlbun3LykduydlwwbxaxFvndelheUUOFR-P (Standard) Question Answer Notes Did you have a drink containing alcohol in the p ast year? Yes How often did you have a drink containing alcohol in the past year?Never (0 point)How many drinks did you have on a typical day when you were drinking in the past year?1 or 2 drinks (0 point)How often did you have six or more drinks on one occasion in the past year?4 or more times a week (4 points)Points4 InterpretationPositive Problems Problem Type SNOMED Code ICD Code Onset Dates Problem Status W/U Status Risk Notes Problem Information temporarily unavailable Hypom agnesemia (E83.42) ActiveconfirmedProblemInformation temporarily unavailableHypokalemia (E87.6) ActiveconfirmedProblemInformation temporarily unavailableCOPD (chronic obstructive pulmonary disease) (J44.9)ActiveconfirmedProblemInformation temporarily unavailableTachycardia (R00.0)ActiveconfirmedProblemInformation temporarily unavailableAnemia (D64.9)ActiveconfirmedProblemInformation temporarily unavailableInsomnia (G47.00)ActiveconfirmedProblemInformation temporarily unavailableHyponatremia (E87.1)ActiveconfirmedProblemInformation temporarily unavailableAlcohol abuse (F10.10)ActiveconfirmedProblemInformation temporarily unavailableCOPD exacerbation (J44.1)ActiveconfirmedProblem Information temporarily unavailableThrombocytopenia (D69.6)Activeconfirmed ProblemInformation temporarily unavailableGeneralized weakness (R53.1)Active confirmedProblemInformation temporarily unavailableTobacco dependence (F17.200) ActiveconfirmedProblemInformation temporarily unavailableHypophosphatemia (E83.39)ActiveconfirmedProblemInformation temporarily unavailableAcute colitis (K52.9)Activeconfirmed Vital Signs Blood pressure diastolic 82 mm Hg 11/02/2024 Cmxjhn90.5 in11/02/2024lood pressure nyqthkpw759 mm Hg11/02/20245722Gaxtgq98.0 lbs 11/02/2024BMI17.84 kg/m211/02/2024 Encounters Encounter Location Date Provider Diagnosis [facility] [address] [place] [address] 11/02/2024 Bob Luu [facility] [place] [address] 11/04/2024[facility] [place] [address]/15/2025Doug HoyAcute colitis K52.9 and Irritable R45.4 Assessments Encounter Date Diagnosis (ICD Code) Assessment Notes Treatment Notes Treatment Clinical Notes Section Notes 11/02/2024 Acute colitis (ICD-10 - K52.9) 11/02/2024Irritable (ICD-10 - R45.4)11/04/2024ute colitis (ICD-10 - K52.9) Plan Of Treatment Pending Test Test Name Order Date CMP (COMPLETE METABOLIC PANEL) 4 CMP (COMPLETE METABOLIC PANEL) 4 AMMONIA 06/04/2023 HEMOGLOBIN A1C (GLYCO) 08/01/2023 IRON, TOTAL 08/01/2023 MAGNESIUM 06/04/2023 LIPID PANEL (CHOL/TRIG/HDL/LDL) 08/01/19 24 CBC WITH DIFF (EXP 02/2025) 08/01/2023 PHOSPHORUS 06/04/2023 VITAMIN D, 25 LEVEL (TOTAL) 08/01/2023 Insulin Level 08/01/2023 STOOL OCCULT BLOOD 08/01/2023 THYROID PANEL (T4/TSH/FREE T3) 4 XR foot RT min 3V 03/20/2025 Medications Administered Medication Instructions Date of Administration Dosage Notes Dexamethasone, 4mg/mL 48 mg Medical (General) History Surgical History Surgery Date(Month/Year) partial hysterectomy 1995
== END 2025-03-20 11:39 | disposition home or self-care (01) ==
PROVIDERS: Emergency Provider Emergency Medicine; PCP Nurse Practitioner Family
DX: S90.31XA Contusion of right foot, initial encounter (principal); W18.49XA Other slipping, tripping and stumbling without falling, initial encounter; F17.200 Nicotine dependence, unspecified, uncomplicated
CPT/HCPCS: 73630; 99283